=== PATIENT | female | born 1990 | race Hispanic/Latino ===

== ENCOUNTER 2017-07-21 15:43 | Emergency (ER) | payer MEDICAID ==
[~2017-07-21 15:43] MED LIST: MO6B GT; PREN1TAB80 PO
[2017-07-21 16:02] LABS: APPEARANCE,URINE Clear (CLEAR); BILIRUBIN,URINE Negative (NEGATIVE); COLOR,URINE Yellow (YELLOW); GLUCOSE, URINE (UA) Negative (NEGATIVE); KETONES,URINE Negative (NEGATIVE); LEUKOCYTE ESTERASE ,URINE Large (NEGATIVE); NITRATE,URINE Negative (NEGATIVE); OCCULT BLOOD,URINE Negative (NEGATIVE); PROTEIN,URINE Negative (NEGATIVE); UROBILINOGEN,URINE 0.2 mg/dL (0.2-1.0)
[2017-07-21 16:03] LABS: HCG,QUAL RESULT NEGATIVE (NEGATIVE)
[2017-07-21 16:33] LABS: RBC,URINE None Seen /HPF (0-1)
[2017-07-21 16:34] LABS: BACTERIA,URINE Few /HPF (None Seen); MUCUS,URINE Rare LPF (None Seen); SQUAMOUS EPITHELIAL CELL,UR Few /LPF (0-2); TRICHOMONAS,URINE Moderate /LPF (None Seen); YEAST,URINE BUDDING Few /HPF (None Seen)
[2017-07-21] MEDS ORDERED: CEFTRIAXONE SODIUM 1 GM ONE (16:50)
[2017-07-21] MEDS ORDERED: LIDOCAINE HCL-MPF 1% 2ML VIAL ONE (16:50)
== END 2017-07-21 17:19 | disposition home or self-care (01) ==
LOC: EDH 15:43
DX: N39.0 Urinary tract infection, site not specified (principal); J45.909 Unspecified asthma, uncomplicated
CPT/HCPCS: 81001; 81025; 96372; 99284; J0696; J3490

== ENCOUNTER 2017-10-11 07:32 | Emergency (ER) | payer MEDICAID ==
[2017-10-11] MEDS ORDERED: ACETAMINOPHEN 325 MG TAB ONE (08:02)
== END 2017-10-11 09:26 | disposition home or self-care (01) ==
LOC: EDH 07:32
DX: J01.90 Acute sinusitis, unspecified (principal); H61.21 Impacted cerumen, right ear; J45.909 Unspecified asthma, uncomplicated; Z91.040 Latex allergy status
CPT/HCPCS: 69210; 87804

== ENCOUNTER 2018-03-18 19:36 | Emergency (ER) | payer MEDICAID ==
[2018-03-18] MEDS ORDERED: ACETAMINOPHEN 325 MG TAB ONE (20:34)
[2018-03-18 20:38] LABS: APPEARANCE,URINE Clear (CLEAR); BASOPHILS % (AUTO) 0.6 % (0.0-5.0); BILIRUBIN,URINE Negative (NEGATIVE); COLOR,URINE Yellow (YELLOW); EOSINOPHILS % (AUTO) 4.1 % (0.0-8.0); GLUCOSE, URINE (UA) Negative (NEGATIVE); HEMATOCRIT 37.6 % (36-48); KETONES,URINE Negative (NEGATIVE); LEUKOCYTE ESTERASE ,URINE Negative (NEGATIVE); LYMPHOCYTES % (AUTO) 34.1 % (21.0-51.0); MEAN CORPUSCULAR HEMOGLOBIN 30.3 pg (27.0-33.0); MEAN CORPUSCULAR HGB CONC 33.5 g/dL (32.0-36.0); MEAN CORPUSCULAR VOLUME 90.4 fL (79-99); MONOCYTES % (AUTO) 7.6 % (3.0-13.0); NEUTROPHILS % (AUTO) 53.6 % (40.0-77.0); NITRATE,URINE Negative (NEGATIVE); OCCULT BLOOD,URINE Negative (NEGATIVE); PLATELET COUNT (AUTO) 318 K/uL (130-400); PROTEIN,URINE Negative (NEGATIVE); RED BLOOD CELL COUNT(AUTO) 4.17 MIL/uL (4.00-5.50); RED CELL DISTRIBUTION WIDTH 12.9 % (11.0-15.5); UROBILINOGEN,URINE 0.2 mg/dL (0.2-1.0); WHITE BLOOD COUNT (AUTO) 6.7 K/uL (4.8-10.8)
[2018-03-18 20:45] LABS: CREATININE 0.7 mg/dL (0.5-1.5); POTASSIUM 3.6 mmol/L (3.5-5.1)
[2018-03-18 20:55] LABS: HCG,QUAL RESULT NEGATIVE (NEGATIVE)
== END 2018-03-18 22:19 | disposition home or self-care (01) ==
LOC: EDH 19:36
DX: H81.10 Benign paroxysmal vertigo, unspecified ear (principal); R51 Headache; J45.909 Unspecified asthma, uncomplicated; Z91.041 Radiographic dye allergy status
CPT/HCPCS: 36415; 70450; 80048; 81003; 81025; 85025

== ENCOUNTER 2018-08-17 20:03 | Emergency (ER) | payer MEDICAID ==
[2018-08-17] MEDS ORDERED: IBUPROFEN 600 MG TABLET ONE (21:33)
== END 2018-08-17 21:49 | disposition home or self-care (01) ==
LOC: EDH 20:03
DX: S93.401A Sprain of unspecified ligament of right ankle, initial encounter (principal); J45.909 Unspecified asthma, uncomplicated; Z91.040 Latex allergy status; W18.39XA Other fall on same level, initial encounter; Y93.01 Activity, walking, marching and hiking; Y92.89 Other specified places as the place of occurrence of the external cause; Y99.8 Other external cause status
CPT/HCPCS: 73610

== ENCOUNTER 2019-02-03 15:32 | Emergency (ER) | payer MEDICAID ==
[2019-02-03] MEDS ORDERED: FAMOTIDINE 20MG TAB 20 MG TAB ONE (16:31)
[2019-02-03] MEDS ORDERED: METHYLPREDNISOLONE SOD SUCC 40MG/ML 1ML ONE (16:31)
[2019-02-03] MEDS ORDERED: DIPHENHYDRAMINE HCL 25 MG CAPSULE ONE (16:31)
== END 2019-02-03 17:05 | disposition home or self-care (01) ==
LOC: EDH 15:32
DX: T78.1XXA Other adverse food reactions, not elsewhere classified, initial encounter (principal); L50.9 Urticaria, unspecified; J45.909 Unspecified asthma, uncomplicated; Z91.040 Latex allergy status; X58.XXXA Exposure to other specified factors, initial encounter
CPT/HCPCS: 96372; 99283; J2920; Q0163

== ENCOUNTER 2019-02-04 16:31 | Emergency (ER) | payer MEDICAID ==
[2019-02-04] MEDS ORDERED: DiphenhydrAMINE HCL 50 MG/ML VIAL ONE (17:28)
[2019-02-04] MEDS ORDERED: FAMOTIDINE 20MG TAB 20 MG TAB ONE (17:28)
== END 2019-02-04 17:42 | disposition home or self-care (01) ==
LOC: EDH 16:31
DX: T78.49XA Other allergy, initial encounter (principal); J45.909 Unspecified asthma, uncomplicated; Z91.040 Latex allergy status; X58.XXXA Exposure to other specified factors, initial encounter
CPT/HCPCS: 96372; 99283; J1200

== ENCOUNTER 2019-02-17 09:31 | Emergency (ER) | payer MEDICAID ==
[2019-02-17 09:50] LABS: BASOPHILS % (AUTO) 0.3 % (0.0-5.0); EOSINOPHILS % (AUTO) 0.8 % (0.0-8.0); HEMATOCRIT 39.5 % (36-48); LYMPHOCYTES % (AUTO) 20.7 % (21.0-51.0); MEAN CORPUSCULAR HEMOGLOBIN 30.3 pg (27.0-33.0); MEAN CORPUSCULAR HGB CONC 33.7 g/dL (32.0-36.0); MEAN CORPUSCULAR VOLUME 89.8 fL (79-99); MONOCYTES % (AUTO) 5.2 % (3.0-13.0); NUCLEATED RED BLOOD CELLS 0.1 % (0.0-0.19); PLATELET COUNT (AUTO) 273 K/uL (130-400); RED CELL DISTRIBUTION WIDTH 12.6 % (11.0-15.5); WHITE BLOOD COUNT (AUTO) 6.2 K/uL (4.8-10.8)
[2019-02-17] MEDS ORDERED: METOCLOPRAMIDE 10 MG/2 ML VIAL ONE (09:53)
[2019-02-17] MEDS ORDERED: ACETAMINOPHEN EXTRA STRENGTH 500 MG TABLET ONE (09:54)
[2019-02-17] MEDS ORDERED: SODIUM CHLORIDE 0.9% 1000ML 1,000 ML IV ONE (09:54)
[2019-02-17] MEDS ORDERED: SODIUM CHLORIDE 0.9% 50 ML IV ONE (09:54)
[2019-02-17 10:05] LABS: APPEARANCE,URINE Clear (CLEAR); BILIRUBIN,URINE Negative (NEGATIVE); COLOR,URINE Yellow (YELLOW); GLUCOSE, URINE (UA) Negative (NEGATIVE); KETONES,URINE Negative (NEGATIVE); LEUKOCYTE ESTERASE ,URINE Negative (NEGATIVE); NITRATE,URINE Negative (NEGATIVE); OCCULT BLOOD,URINE Negative (NEGATIVE); PH,URINE >=9.0 (5.0-8.0); PROTEIN,URINE Negative (NEGATIVE)
[2019-02-17 10:10] LABS: CREATININE 0.7 mg/dL (0.5-1.5); POTASSIUM 4.1 mmol/L (3.5-5.1)
[2019-02-17 10:11] LABS: HCG,QUAL RESULT NEGATIVE (NEGATIVE)
[2019-02-17 10:13] LABS: BILIRUBIN,TOTAL 0.3 mg/dL (0.2-1.0); TOTAL PROTEIN, SERUM 8.1 g/dL (6.0-8.3)
[2019-02-17 10:17] LABS: BACTERIA,URINE Rare /HPF (None Seen); RBC,URINE None Seen /HPF (0-1); SQUAMOUS EPITHELIAL CELL,UR Rare /HPF (0-2); WBC,URINE 0-1 /HPF (0-1)
== END 2019-02-17 10:46 | disposition home or self-care (01) ==
LOC: EDH 09:31
DX: K62.5 Hemorrhage of anus and rectum (principal); R51 Headache; R11.2 Nausea with vomiting, unspecified; Z91.040 Latex allergy status; J45.909 Unspecified asthma, uncomplicated
CPT/HCPCS: 36415; 80053; 81001; 81025; 82270; 85025; 96361; 96374; 99284; J2765; J7030

== ENCOUNTER 2020-08-04 11:53 | Emergency (ER) | payer MEDICAID ==
[~2020-08-04 11:53] MED LIST changes: +IBUP-2088 GT; -MO6B GT
[2020-08-04] MEDS ORDERED: LIDOCAINE HCL-MPF 1% 2ML VIAL ONE (12:19)
[2020-08-04] MEDS ORDERED: CEFTRIAXONE SODIUM 1 GM ONE (12:20)
[2020-08-04] MEDS ORDERED: AZITHROMYCIN 250 MG TABLET PO ONE (12:21)
[2020-08-04] MEDS ORDERED: KETOROLAC TROMETHAMINE 30MG/ML ONE (12:21)
[2020-08-04] MEDS ORDERED: PHENAZOPYRIDINE HCL 200 MG TABLET ONE (12:21)
[2020-08-04 12:44] LABS: HCG,QUAL RESULT NEGATIVE (NEGATIVE)
[2020-08-04 12:45] LABS: APPEARANCE,URINE SL CLOUDY (CLEAR); BILIRUBIN,URINE NEGATIVE (NEGATIVE); COLOR,URINE YELLOW (YELLOW); GLUCOSE, URINE (UA) NEGATIVE (NEGATIVE); KETONES,URINE 5 mg/dL (NEGATIVE); LEUKOCYTE ESTERASE ,URINE SMALL (NEGATIVE); NITRATE,URINE NEGATIVE (NEGATIVE); OCCULT BLOOD,URINE MODERATE (NEGATIVE); PROTEIN,URINE NEGATIVE (NEGATIVE); UROBILINOGEN,URINE 0.2 mg/dL (0.2-1.0)
[2020-08-04 13:10] LABS: BACTERIA,URINE Moderate /HPF (None Seen)
== END 2020-08-04 13:58 | disposition home or self-care (01) ==
LOC: EDH 11:53 → EEVIPCON 11:53 → EDH 13:58
DX: N39.0 Urinary tract infection, site not specified (principal); J45.909 Unspecified asthma, uncomplicated; Z91.040 Latex allergy status
CPT/HCPCS: 81001; 81025; 87088; 87486; 87797; 96372 ×2; 99284; J0696; J1885; J3490

== ENCOUNTER 2020-09-18 09:29 | Emergency (ER) | payer MEDICAID ==
[2020-09-18 10:26] LABS: APPEARANCE,URINE SL CLOUDY (CLEAR); BILIRUBIN,URINE NEGATIVE (NEGATIVE); COLOR,URINE RED (YELLOW); GLUCOSE, URINE (UA) NEGATIVE (NEGATIVE); KETONES,URINE NEGATIVE (NEGATIVE); OCCULT BLOOD,URINE LARGE (NEGATIVE); PROTEIN,URINE 30 mg/dL (NEGATIVE)
[2020-09-18 10:27] LABS: LEUKOCYTE ESTERASE ,URINE MODERATE (NEGATIVE); NITRATE,URINE NEGATIVE (NEGATIVE); UROBILINOGEN,URINE 0.2 mg/dL (0.2-1.0)
[2020-09-18 10:29] LABS: HCG,QUAL RESULT NEGATIVE (NEGATIVE)
[2020-09-18 10:35] LABS: RBC,URINE >100 /HPF (0-1)
[2020-09-18 10:36] LABS: BACTERIA,URINE Rare /HPF (None Seen); SQUAMOUS EPITHELIAL CELL,UR Few /HPF (0-2)
[2020-09-18] MEDS ORDERED: HYDROCODONE/ACETAMINOPHEN 7.5/325 MG TAB ONE (12:56)
== END 2020-09-18 13:41 | disposition home or self-care (01) ==
LOC: EDH 09:29
DX: S20.211A Contusion of right front wall of thorax, initial encounter (principal); J45.909 Unspecified asthma, uncomplicated; Z91.040 Latex allergy status; V49.49XA Driver injured in collision with other motor vehicles in traffic accident, initial encounter; Y93.89 Activity, other specified; Y92.89 Other specified places as the place of occurrence of the external cause; Y99.8 Other external cause status
CPT/HCPCS: 71046; 81001; 81025; 87088

== ENCOUNTER 2022-04-01 00:49 | Emergency (ER) | payer MEDICAID ==
[~2022-04-01] VITALS: Ht 160 cm; Wt 66.2 kg
[2022-04-01 01:30] LABS: BASOPHILS % (AUTO) 0.1 % (0.0-5.0); EOSINOPHILS % (AUTO) 1.3 % (0.0-8.0); HEMATOCRIT 40.7 % (36-48); LYMPHOCYTES % (AUTO) 8.4 % (21.0-51.0); MEAN CORPUSCULAR HEMOGLOBIN 29.4 pg (27.0-33.0); MEAN CORPUSCULAR HGB CONC 33.7 g/dL (32.0-36.0); MEAN CORPUSCULAR VOLUME 87.3 fL (79-99); MONOCYTES % (AUTO) 5.1 % (3.0-13.0); NEUTROPHILS % (AUTO) 84.7 % (40.0-77.0); PLATELET COUNT (AUTO) 319 K/uL (130-400); RED BLOOD CELL COUNT(AUTO) 4.66 MIL/uL (4.00-5.50); RED CELL DISTRIBUTION WIDTH 11.9 % (11.0-15.5); WHITE BLOOD COUNT (AUTO) 13.4 K/uL (4.8-10.8)
[2022-04-01] MEDS ORDERED: ONDANSETRON 4MG INJ IVP ONE ×2 (01:30→05:00)
[2022-04-01] MEDS ORDERED: LACTATED RINGERS 1000ML 1,000 ML IV ONE (01:30)
[2022-04-01] MEDS ORDERED: MORPHINE 4 MG SYG IVP ONE (01:30)
[2022-04-01] MEDS ORDERED: FAMOTIDINE 20MG VIAL IV ONE (01:30)
[2022-04-01 01:39] LABS: CREATININE 0.8 mg/dL (0.5-1.5); POTASSIUM 3.4 mmol/L (3.5-5.1)
[2022-04-01 01:44] LABS: ALBUMIN 4.2 g/dL (3.5-5.0); TOTAL PROTEIN, SERUM 8.6 g/dL (6.0-8.3)
[2022-04-01 03:30] VITALS: BP 101/59
[2022-04-01 03:39] LABS: APPEARANCE,URINE CLEAR (CLEAR); BILIRUBIN,URINE NEGATIVE (NEGATIVE); COLOR,URINE YELLOW (YELLOW); GLUCOSE, URINE (UA) NEGATIVE (NEGATIVE); KETONES,URINE NEGATIVE (NEGATIVE); LEUKOCYTE ESTERASE ,URINE NEGATIVE Leu/uL (NEGATIVE); NITRATE,URINE NEGATIVE (NEGATIVE); OCCULT BLOOD,URINE NEGATIVE (NEGATIVE); PH,URINE 5.5 (5.0-8.0); PROTEIN,URINE NEGATIVE (NEGATIVE); UROBILINOGEN,URINE 0.2 mg/dL (0.2-1.0)
[2022-04-01 03:40] LABS: HCG,QUALITATIVE URINE NEGATIVE (NEGATIVE)
[2022-04-01] MEDS ORDERED: PROMETHAZINE HCL 25 MG/ML 1ML AMPULE IM ONE (05:30)
[2022-04-01] MEDS ORDERED: PROM25TA7 PO (06:14)
[2022-04-01] MEDS ORDERED: FAMO-136 PO (06:15)
== END 2022-04-01 06:30 | disposition home or self-care (01) ==
LOC: EDH 00:49
DX: R11.10 Vomiting, unspecified (principal); R10.13 Epigastric pain; E86.0 Dehydration; J45.909 Unspecified asthma, uncomplicated
CPT/HCPCS: 99284; 96374; 96375; 96361; 80053; 83690; 85025; 81003; 81025; 36415; 96376; 96372; J2550; J2405 ×2; J2270; S0028; J3490

== ENCOUNTER 2022-05-05 19:48 | Emergency (ER) | payer MEDICAID ==
[~2022-05-05] VITALS: Ht 157.5 cm; Wt 64.9 kg
[~2022-05-05 19:48] MED LIST changes: +FAMO-136 PO; +PROM25TA7 PO
[2022-05-05] MEDS ORDERED: OSEL75 PO (21:15)
[2022-05-05 21:20] VITALS: BP 118/76
== END 2022-05-05 21:28 | disposition home or self-care (01) ==
LOC: EDH 19:48
DX: J11.1 Influenza due to unidentified influenza virus with other respiratory manifestations (principal); J45.909 Unspecified asthma, uncomplicated; Z79.899 Other long term (current) drug therapy; Z91.040 Latex allergy status; Z20.822 Contact with and (suspected) exposure to COVID-19
CPT/HCPCS: 99283; 87635; 87880; 87804 ×2; C9803

== ENCOUNTER 2022-06-18 22:31 | Emergency (ER) | payer MEDICAID ==
[~2022-06-18] VITALS: Ht 160 cm; Wt 65.3 kg
[~2022-06-18 22:31] MED LIST changes: +OSEL75 PO
[2022-06-18 22:42] VITALS: BP 106/66
[2022-06-18] MEDS ORDERED: ACETAMINOPHEN 500 MG TABLET PO ONE (23:30)
== END 2022-06-19 00:21 | disposition left against medical advice (07) ==
LOC: EDH 22:31
DX: G43.909 Migraine, unspecified, not intractable, without status migrainosus (principal); R11.0 Nausea; Z91.040 Latex allergy status; Z79.899 Other long term (current) drug therapy
CPT/HCPCS: 99281

== ENCOUNTER 2022-11-12 02:17 | Emergency (ER) | payer MEDICAID ==
[~2022-11-12] VITALS: Ht 160 cm; Wt 69.4 kg
[2022-11-12 02:20] VITALS: BP 112/67
== END 2022-11-12 04:17 | disposition left against medical advice (07) ==
LOC: EDH 02:17
DX: R53.1 Weakness (principal); R42 Dizziness and giddiness; R11.2 Nausea with vomiting, unspecified; R19.7 Diarrhea, unspecified; Z53.21 Procedure and treatment not carried out due to patient leaving prior to being seen by health care provider

== ENCOUNTER 2023-02-07 15:45 | Emergency (ER) | payer MEDICAID ==
[~2023-02-07] VITALS: Ht 160 cm; Wt 65.3 kg
[2023-02-07 15:47] VITALS: BP 119/73; PULSE 71; RESP 16
[2023-02-07 17:33] LABS: BASOPHILS # (AUTO) 0.02 K/uL (0.00-0.20); BASOPHILS % (AUTO) 0.3 % (0.0-5.0); EOSINOPHILS # (AUTO) 0.29 K/uL (0.00-0.70); EOSINOPHILS % (AUTO) 3.9 % (0.0-8.0); HEMATOCRIT 37.7 % (36-48); IMMATURE GRANULOCYTE ABSOLUTE 0.01 K/uL (0-1); LYMPHOCYTES # (AUTO) 2.1 K/uL (1.0-4.8); LYMPHOCYTES % (AUTO) 27.5 % (21.0-51.0); MEAN CORPUSCULAR HEMOGLOBIN 29.8 pg (27.0-33.0); MEAN CORPUSCULAR HGB CONC 33.4 g/dL (32.0-36.0); MEAN CORPUSCULAR VOLUME 89.1 fL (79-99); MONOCYTES # (AUTO) 0.4 K/uL (0.1-1.0); MONOCYTES % (AUTO) 5.6 % (3.0-13.0); NEUTROPHILS # (AUTO) 4.7 K/uL (1.8-7.7); NEUTROPHILS % (AUTO) 62.6 % (40.0-77.0); PLATELET COUNT (AUTO) 352 K/uL (130-400); RED BLOOD CELL COUNT(AUTO) 4.23 MIL/uL (4.00-5.50); RED CELL DISTRIBUTION WIDTH 12.1 % (11.0-15.5); WHITE BLOOD COUNT (AUTO) 7.5 K/uL (4.8-10.8)
[2023-02-07 18:01] LABS: ALBUMIN 4.1 g/dL (3.5-5.0); BILIRUBIN,TOTAL 0.4 mg/dL (0.2-1.0); CREATININE 0.8 mg/dL (0.5-1.5); POTASSIUM 3.6 mmol/L (3.5-5.1); TOTAL PROTEIN, SERUM 8.2 g/dL (6.0-8.3)
[2023-02-07 18:16] LABS: ADD UA MICROSCOPIC YES; APPEARANCE,URINE CLEAR (CLEAR); BILIRUBIN,URINE NEGATIVE (NEGATIVE); COLOR,URINE YELLOW (YELLOW); GLUCOSE, URINE (UA) NEGATIVE (NEGATIVE); KETONES,URINE 40 mg/dL (NEGATIVE); LEUKOCYTE ESTERASE ,URINE 75 Leu/uL (NEGATIVE); NITRATE,URINE NEGATIVE (NEGATIVE); OCCULT BLOOD,URINE NEGATIVE (NEGATIVE); PROTEIN,URINE 10 mg/dL (NEGATIVE); UROBILINOGEN,URINE 0.2 mg/dL (0.2-1.0)
[2023-02-07 18:19] LABS: HCG,QUALITATIVE URINE NEGATIVE (NEGATIVE)
[2023-02-07 18:22] LABS: BACTERIA,URINE FEW /HPF (None Seen); MUCUS,URINE RARE LPF (None Seen); RBC,URINE 0-1 /HPF (0-1); SQUAMOUS EPITHELIAL CELL,UR MOD /HPF (0-2)
[2023-02-07] MEDS ORDERED: SULF1TAB42 PO (19:28)
[2023-02-07] MEDS ORDERED: PHEN-847 PO (19:28)
[2023-02-07] MEDS ORDERED: CEFTRIAXONE 1G VIAL IM ONE (19:30)
[2023-02-07] MEDS ORDERED: PHENAZOPYRIDINE HCL 200 MG TABLET PO ONE (19:30)
== END 2023-02-07 19:45 | disposition home or self-care (01) ==
LOC: EDH 15:45
DX: N39.0 Urinary tract infection, site not specified (principal); J45.909 Unspecified asthma, uncomplicated; Z91.040 Latex allergy status
CPT/HCPCS: 99283; 80053; 83690; 85025; 87088; 81001; 81025; 36415; 96372; J0696

== ENCOUNTER 2023-04-12 14:03 | Emergency (ER) | payer MEDICAID ==
[~2023-04-12] VITALS: Ht 160 cm; Wt 64.0 kg
[~2023-04-12 14:03] MED LIST changes: +PHEN-847 PO; +SULF1TAB42 PO
[2023-04-12 14:13] VITALS: BP 131/71; PULSE 93; RESP 16; O2SAT 100
[2023-04-12 14:50] LABS: HEMATOCRIT 38.7 % (36-48); MEAN CORPUSCULAR HEMOGLOBIN 29.5 pg (27.0-33.0); MEAN CORPUSCULAR HGB CONC 32.8 g/dL (32.0-36.0); RED BLOOD CELL COUNT(AUTO) 4.3 MIL/uL (4.00-5.50); RED CELL DISTRIBUTION WIDTH 12.1 % (11.0-15.5); WHITE BLOOD COUNT (AUTO) 6.6 K/uL (4.8-10.8)
[2023-04-12 14:53] LABS: APPEARANCE,URINE CLEAR (CLEAR); BILIRUBIN,URINE NEGATIVE (NEGATIVE); COLOR,URINE LIGHT-YELLOW (YELLOW); GLUCOSE, URINE (UA) NEGATIVE (NEGATIVE); KETONES,URINE NEGATIVE (NEGATIVE); LEUKOCYTE ESTERASE ,URINE NEGATIVE Leu/uL (NEGATIVE); NITRATE,URINE NEGATIVE (NEGATIVE); PROTEIN,URINE 10 mg/dL (NEGATIVE); UROBILINOGEN,URINE 0.2 mg/dL (0.2-1.0)
[2023-04-12 14:57] LABS: ADD UA MICROSCOPIC YES
[2023-04-12 14:59] LABS: HCG,QUALITATIVE URINE NEGATIVE (NEGATIVE)
[2023-04-12 15:00] LABS: BACTERIA,URINE RARE /HPF (None Seen); MUCUS,URINE RARE LPF (None Seen); SQUAMOUS EPITHELIAL CELL,UR RARE /HPF (0-2); WBC,URINE 0-1 /HPF (0-1)
[2023-04-12] MEDS ORDERED: METR-172 PO (15:03)
[2023-04-12 15:26] LABS: CREATININE 0.8 mg/dL (0.5-1.5); POTASSIUM 4.3 mmol/L (3.5-5.1)
[2023-04-12 15:31] LABS: ALBUMIN 3.8 g/dL (3.5-5.0); BILIRUBIN,TOTAL 0.2 mg/dL (0.2-1.0); TOTAL PROTEIN, SERUM 8.1 g/dL (6.0-8.3)
== END 2023-04-12 15:14 | disposition home or self-care (01) ==
LOC: EDH 14:03
DX: N76.0 Acute vaginitis (principal); B96.89 Other specified bacterial agents as the cause of diseases classified elsewhere; J45.909 Unspecified asthma, uncomplicated; Z91.040 Latex allergy status
CPT/HCPCS: 36415; 80053; 81001; 81025; 85027

== ENCOUNTER 2023-06-17 14:32 | Emergency (ER) | payer MEDICAID, OTHER ==
[~2023-06-17] VITALS: Ht 160 cm; Wt 62.6 kg
[~2023-06-17 14:32] MED LIST changes: +METR-172 PO
[2023-06-17 15:54] LABS: BASOPHILS # (AUTO) 0.04 K/uL (0.00-0.20); BASOPHILS % (AUTO) 0.5 % (0.0-5.0); EOSINOPHILS # (AUTO) 0.22 K/uL (0.00-0.70); EOSINOPHILS % (AUTO) 2.8 % (0.0-8.0); HEMATOCRIT 37.4 % (36-48); IMMATURE GRANULOCYTE ABSOLUTE 0.01 K/uL (0-1); LYMPHOCYTES # (AUTO) 2.2 K/uL (1.0-4.8); MEAN CORPUSCULAR HEMOGLOBIN 29.6 pg (27.0-33.0); MEAN CORPUSCULAR HGB CONC 33.7 g/dL (32.0-36.0); MEAN CORPUSCULAR VOLUME 87.8 fL (79-99); MONOCYTES # (AUTO) 0.6 K/uL (0.1-1.0); MONOCYTES % (AUTO) 7.1 % (3.0-13.0); NEUTROPHILS % (AUTO) 62.5 % (40.0-77.0); PLATELET COUNT (AUTO) 386 K/uL (130-400); RED BLOOD CELL COUNT(AUTO) 4.26 MIL/uL (4.00-5.50); RED CELL DISTRIBUTION WIDTH 12.2 % (11.0-15.5)
[2023-06-17 16:13] LABS: CREATININE 0.7 mg/dL (0.5-1.5); POTASSIUM 3.7 mmol/L (3.5-5.1)
[2023-06-17 16:19] LABS: ALBUMIN 4.1 g/dL (3.5-5.0); BILIRUBIN,TOTAL 0.2 mg/dL (0.2-1.0); TOTAL PROTEIN, SERUM 8.2 g/dL (6.0-8.3)
[2023-06-17] MEDS: IPRATROPIUM/ALBUTEROL SULFATE 3 ML SOLUTION IH ONE (16:23)
[2023-06-17 16:24] VITALS: PULSE 82; RESP 18
[2023-06-17] MEDS: DEXAMETHASONE SOD PHOSPHATE 4 MG/ML 1ML VIAL IM ONE (16:57)
[2023-06-17] MEDS: KETOROLAC 30MG VIAL (30MG/ML) IM ONE (16:57)
[2023-06-17 17:30] LABS: SARS-CoV-2, RNA, NAAT NEGATIVE SARS CoV-2 (NEGATIVE)
[2023-06-17 17:36] LABS: INFLUENZA TYPE A Negative For Type A (NEGATIVE); INFLUENZA TYPE B Negative For Type B (NEGATIVE)
[2023-06-17] MEDS ORDERED: ALBU18HF7 IH (18:32)
[2023-06-17] MEDS ORDERED: GUAI-487 PO (18:32)
[2023-06-17] MEDS ORDERED: FLUT16H NASAL (18:32)
[2023-06-17 18:39] VITALS: BP 124/78; PULSE 74; RESP 18; O2SAT 98
== END 2023-06-17 18:45 | disposition home or self-care (01) ==
LOC: EDH 14:32
DX: J98.01 Acute bronchospasm (principal); J06.9 Acute upper respiratory infection, unspecified; Z79.899 Other long term (current) drug therapy; Z88.8 Allergy status to other drugs, medicaments and biological substances; Z20.822 Contact with and (suspected) exposure to COVID-19
CPT/HCPCS: 99284; 71045; 87635; 80053; 85025; 87880; 87804 ×2; 36415; 96372 ×2; 94640; J1100; J1885

== ENCOUNTER 2023-11-10 10:05 | Emergency (ER) | payer OTHER ==
[~2023-11-10] VITALS: Ht 160 cm; Wt 63.5 kg
[~2023-11-10 10:05] MED LIST changes: +ALBU18HF7 IH; +FLUT16H NASAL; +GUAI-487 PO
[2023-11-10 10:45] LABS: BASOPHILS # (AUTO) 0.03 K/uL (0.00-0.20); BASOPHILS % (AUTO) 0.5 % (0.0-5.0); EOSINOPHILS # (AUTO) 0.14 K/uL (0.00-0.70); EOSINOPHILS % (AUTO) 2.3 % (0.0-8.0); HEMATOCRIT 40.4 % (36-48); IMMATURE GRANULOCYTE ABSOLUTE 0.02 K/uL (0-1); LYMPHOCYTES # (AUTO) 1.6 K/uL (1.0-4.8); LYMPHOCYTES % (AUTO) 26.7 % (21.0-51.0); MEAN CORPUSCULAR HEMOGLOBIN 29.8 pg (27.0-33.0); MEAN CORPUSCULAR HGB CONC 32.9 g/dL (32.0-36.0); MEAN CORPUSCULAR VOLUME 90.4 fL (79-99); MONOCYTES # (AUTO) 0.4 K/uL (0.1-1.0); MONOCYTES % (AUTO) 6.1 % (3.0-13.0); NEUTROPHILS # (AUTO) 3.9 K/uL (1.8-7.7); NEUTROPHILS % (AUTO) 64.1 % (40.0-77.0); PLATELET COUNT (AUTO) 356 K/uL (130-400); RED BLOOD CELL COUNT(AUTO) 4.47 MIL/uL (4.00-5.50); RED CELL DISTRIBUTION WIDTH 12.3 % (11.0-15.5)
[2023-11-10 10:53] LABS: CREATININE 0.8 mg/dL (0.5-1.0); POTASSIUM 4.4 mmol/L (3.5-5.1)
[2023-11-10 10:56] LABS: INR 0.99 (0.85-1.15); PROTHROMBIN TIME 10.7 SEC (9.6-11.6)
[2023-11-10 10:57] LABS: BILIRUBIN,TOTAL 0.3 mg/dL (0.2-1.0); TOTAL PROTEIN, SERUM 8.5 g/dL (6.0-8.3)
[2023-11-10] MEDS: ONDANSETRON 4MG INJ IVP ONE (11:01)
[2023-11-10] MEDS: 0.9%NACL 1000ML 1,000 ML IV ONE (11:01)
[2023-11-10 11:24] LABS: APPEARANCE,URINE CLEAR (CLEAR); BILIRUBIN,URINE NEGATIVE (NEGATIVE); COLOR,URINE LIGHT-YELLOW (YELLOW); GLUCOSE, URINE (UA) NEGATIVE (NEGATIVE); KETONES,URINE NEGATIVE (NEGATIVE); LEUKOCYTE ESTERASE ,URINE NEGATIVE Leu/uL (NEGATIVE); NITRATE,URINE NEGATIVE (NEGATIVE); OCCULT BLOOD,URINE SMALL (NEGATIVE); PH,URINE 6.5 (5.0-8.0); PROTEIN,URINE NEGATIVE (NEGATIVE); UROBILINOGEN,URINE 0.2 mg/dL (0.2-1.0)
[2023-11-10] MEDS ORDERED: KETOROLAC 60 MG VIAL (30MG/ML) IM ONE (13:00)
[2023-11-10 13:11] VITALS: BP 116/89; PULSE 65; RESP 18; O2SAT 96
== END 2023-11-10 13:19 | disposition home or self-care (01) ==
LOC: EDH 10:05
DX: N93.9 Abnormal uterine and vaginal bleeding, unspecified (principal); J45.909 Unspecified asthma, uncomplicated; Z91.040 Latex allergy status
CPT/HCPCS: 99285; 96374; 76856; 96361; 80053; 84703; 85025; 85610; 85730; 81001; 36415; J7030; J2405

== ENCOUNTER 2025-03-16 03:31 | Emergency (ER) | payer SELFPAY ==
[~2025-03-16] VITALS: Ht 160 cm; Wt 67.1 kg
[~2025-03-16 03:31] MED LIST changes: -IBUP-2088 GT; +IBUP-2859 GT
[2025-03-16 03:33] VITALS: BP 116/70; PULSE 97; RESP 20; TEMP 98.5
[2025-03-16 04:02] LABS: RAPID GROUP A STREP negative (NEGATIVE)
[2025-03-16 04:06] LABS: SARS-CoV-2, RNA, NAAT NEGATIVE SARS CoV-2 (NEGATIVE)
[2025-03-16 04:12] LABS: INFLUENZA TYPE A Negative For Type A (NEGATIVE); INFLUENZA TYPE B Negative For Type B (NEGATIVE)
[2025-03-16] MEDS ORDERED: AMOX1TAB16 PO (05:00)
--- NOTE | 2025-03-16 05:00 | ERN ---
General Chief Complaint: Sore Throat Stated Complaint: C/O SORE THROAT,CONGESTION, BODYACHE, SOB Time Seen by MD: 03:48 History of Present Illness Initial Comments 34-year-old female came in for sore throat. Allergies: Coded Allergies: Latex, Natural Rubber (Unverified Allergy, Unknown, 02/03/19) Home Meds Active Scripts Fluticasone Propionate (Flonase Nasal [place]) 50 Mcg/Actuation [place], 1-2 SPRAY NASAL ONCE, #1 BOTTLE 0 Refills Prov:REMEDIOS MELGOZA [facility] 06/17/23 Guaifenesin/Pseudoephedrne HCl (Mucinex D ER 600-60 mg Tablet) 600 Mg-60 Mg Tab.er.12h, 1 EACH PO BID PRN for COUGH, #20 TAB 0 Refills Prov:REMEDIOS MELGOZA [facility] 06/17/23 Albuterol Sulfate (Ventolin Hfa) 90 Mcg Hfa.aer.ad, 1-2 PUFF IH Q6H PRN for WHEEZING, #1 INHALER 0 Refills Prov:REMEDIOS MELGOZA [facility] 06/17/23 Metronidazole (Metronidazole) 500 Mg Tablet, 500 MG PO BID for 7 Days, #14 TAB Prov:OKSANA BARBOUR NP 04/12/23 Phenazopyridine HCl (Pyridium) 200 Mg Tab, 200 MG PO TIDPC for 3 Days, #9 TAB TAKE WITH FOOD TO PREVENT STOMACH UPSET. Prov:OSMANI BOYER [facility] 02/07/23 Sulfamethoxazole/Trimethoprim (Bactrim Ds Tablet) 800 Mg-160 Mg Tablet, 1 TAB PO BID for 7 Days, #14 TAB 0 Refills Prov:OSMANI BOYER [facility] 02/07/23 Oseltamivir Phosphate (Tamiflu) 75 Mg Cap, 75 MG PO BID for 5 Days, #10 CAP Prov:OKSANA BARBOUR NP 05/05/22 Famotidine (Pepcid) 20 Mg Tablet, 20 MG PO DAILY, #15 TAB 0 Refills Prov:LATONIA PORTILLO MD 04/01/22 Promethazine HCl (Promethazine HCl) 25 Mg Tablet, 25 MG PO Q6HPRN PRN for NAUSEA, #15 TAB 0 Refills Prov:LATONIA PORTILLO MD 04/01/22 Ibuprofen (Motrin/Advil) 600 Mg Tab, 600 MG GT q 8h , #30 TAB Prov:YULISA BANUELOS Jr., MD 05/20/14 Reported Medications Vits W-Ca,Fe,FA(<1Mg) ( Vitamins) 1 Each Tablet, 1 EACH PO DAILY, TAB 04/25/14 Past Medical History Past Medical History: Asthma Past Surgical History: None Female( History) LMP: Feb 10, 2025 ROS Dictation Sore throat Physical Exam Physical Exam Dictation Tonsils are 2+ with exudates Results Laboratory and Microbiology Lab and Micro Result Laboratory Tests Test 03/16/25 03:46 Influenza Type A Antigen Negative For Type A Influenza Type B Antigen Negative For Type B SARS-CoV-2, RNA, NAAT NEGATIVE SARS CoV-2 Group A Streptococcus Rapid negative (NEGATIVE) MDM MDM: Differential diagnosis: Rationale: Tests considered and ordered secondary to shared decision making include: Previous outside records reviewed: Old ER visits. Risk of complication and/or morbidity or mortality of patient management: None Medications-Per medication reconciliation Need for hospitalization: Patient does not meet criteria for hospitalization. Need for emergency major/minor surgery: No There are no social concerns with this patient. Prescription drug management Prescriptions will include symptomatic care Patient's prior external medical records from other ER visits were reviewed by me as indicated. Prior testing and results from previous visits were reviewed. Prior tests were taken into account with medical decision making and resource utilization, independent historian/historians were used to obtain complete medical history. I independently interpreted the test that were performed, results were reviewed by me and considered findings on radiology if ordered. Medical management and examination interpretation discussions were had by me with other qualified healthcare professionals as indicated for the patient's care. ED Course Orders Procedure Category Date Status Time Covid Rna Naat LAB 03/16/25 Complete 03:41 Influenza Type A & B, LAB 03/16/25 Complete Rapid 03:41 Rapid (Group A Strep) LAB 03/16/25 Complete 03:41 Vital Signs Date Time Temp Pulse Resp B/P (MAP) Pulse Ox O2 Delivery O2 Flow Rate FiO2 03/16/25 03:33 98.4 97 20 116/70 100 Room Air DX & DISP Disposition: Discharge Departure Impression: Primary Impression: Pharyngitis Condition: Stable Scripts Amoxicillin/Potassium Clav (Amox Tr-K Clv 875-125 mg Tab) 875 Mg-125 Mg Tablet 1 EACH PO BID for 10 Days, #20 TAB 0 Refills Prov: TIBURCIO COOLEY MD 03/16/25 TIBURCIO COOLEY MD Mar 16, 2025 05:00
== END 2025-03-16 05:43 | disposition home or self-care (01) ==
LOC: EDH 03:31
DX: J02.9 Acute pharyngitis, unspecified (principal); J45.909 Unspecified asthma, uncomplicated; Z20.822 Contact with and (suspected) exposure to COVID-19; Z91.040 Latex allergy status
CPT/HCPCS: 99283; 87635; 87880; 87804 ×2; 96372; J1100; J0696

== ENCOUNTER 2025-04-21 19:15 | Emergency (ER) | payer OTHER ==
[~2025-04-21] VITALS: Ht 160 cm; Wt 66.2 kg
[2025-04-21 19:48] VITALS: TEMP 97.8
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
[2025-04-21 22:07] VITALS: BP 102/56; PULSE 68; RESP 17; O2SAT 99
== END 2025-04-21 22:10 | disposition home or self-care (01) ==
LOC: EDH 19:15
DX: S16.1XXA Strain of muscle, fascia and tendon at neck level, initial encounter (principal); S29.011A Strain of muscle and tendon of front wall of thorax, initial encounter; M54.6 Pain in thoracic spine; J45.909 Unspecified asthma, uncomplicated; Z91.040 Latex allergy status; Z79.899 Other long term (current) drug therapy; V89.2XXA Person injured in unspecified motor-vehicle accident, traffic, initial encounter; Y93.I9 Activity, other involving external motion; Y92.488 Other paved roadways as the place of occurrence of the external cause; Y99.8 Other external cause status
CPT/HCPCS: 99283; 71045; 96372; J1885